=== PATIENT | male | born 1970 | race African-American/Black ===

== ENCOUNTER 2019-07-11 02:44 | Emergency (ER) | payer BC ==
[2019-07-11] MEDS ORDERED: NOREPINEPHRINE 4mg/D5W 250mL 4 MG/250 ML BAG IV ONE (03:06)
[2019-07-11] MEDS ORDERED: LORazepam 2 MG/ML VIAL ONE (03:17)
[2019-07-11] MEDS ORDERED: D5 0.9 NS 1,000 ML IV ONE (03:17)
[2019-07-11] MEDS ORDERED: SODIUM BICARB 50 MEQ/50ML VIAL ONE ×4 (03:21→10:00)
[2019-07-11] MEDS ORDERED: EPINEPHRINE/PF 1 MG/ML AMP ONE (03:23)
[2019-07-11] MEDS ORDERED: NA CHLORIDE 0.9% 0 ML ONE (03:23)
[2019-07-11 03:35] LABS: Absolute Lymphocytes (CBC) 2.6 K/uL (0.7-4.9); Basophils % 0.4 % (0-1.3); Hematocrit 48.9 % (39.6-49.0); Lymphocytes % 17.6 % (15.3-44.8); MPV 10.9 fL (7.6-11.3); RBC Red Blood Cell Count 4.69 M/uL (4.33-5.43)
--- NOTE | 2019-07-11 03:41 | ER ---
Nurse's Notes [facility] Name: Gael Castañeda Age: 49 yrs Sex: Male : 1970 Arrival Date: 07/11/2019 Time: 03:08 Bed 3 Private MD: Diagnosis: Respiratory arrest-sp cpr;Acidosis;Hypotension;Sepsis, unspecified organism;Bandemia Presentation: 07/11 02:38 Compressions began at 02:38. rv 03:28 Presenting complaint: states: HE WAS SEEN IN [place] LAST NIGHT FOR FLU AND WAS rv GIVEN [employer]. TODAY, I WAS ON THE COUCH AND I JUST HEARD A MOANING SOUND. I CAME IN THERE, I SAW HIM SNORING AND NOT RESPONDING. EYES ARE CLOSED. I TURNED HIM TO HIS SIDE AND A LOT OF PHLEGM CAME OUT. THEN THE AMBULANCE CAME. Transition of care: patient was not received from another setting of care. Onset of symptoms was July 11, 2019 at 02:30. Risk Assessment: Do you want to hurt yourself or someone else? Patient reports no desire to harm self or others. Care prior to arrival: Assisted ventilation. 03:28 Method Of Arrival: EMS: [facility] rv 03:28 Acuity: VERONICA 1 rv 05:08 Initial Sepsis Screen: Does the patient meet any 2 criteria? No. Patient's initial rv sepsis screen is negative. Does the patient have a suspected source of infection? No. Patient's initial sepsis screen is negative. Triage Assessment: 03:34 General: Appears distressed, Behavior is unresponsive. Pain: Unable to use pain scale. rv Patient is unresponsive. Neuro: Level of Consciousness is unresponsive. Cardiovascular: Rhythm is asystole. Respiratory: Airway is compromised. Historical: - Allergies: 05:09 No Known Allergies; rv - Home Meds: 05:09 None [Active]; rv - PMHx: 05:09 None; rv - PSHx: 05:09 Appendectomy; rv - Immunization history:: Adult Immunizations up to date. - Family history:: not pertinent. - Ebola Screening: : No symptoms or risks identified at this time. - Social history:: Smoking status: Patient denies any tobacco usage or history of. Screenin:08 Abuse screen: Denies threats or abuse. Denies injuries from another. Nutritional rv screening: No deficits noted. Tuberculosis screening: No symptoms or risk factors identified. Fall Risk None identified. Assessment: 02:38 Cardiac rhythm is asystole. rv 02:38 General: Appears distressed. Neuro: Level of Consciousness is unresponsive. rv Cardiovascular: Rhythm is PEA. Respiratory: Airway is compromised. 02:38 Reassessment: Reassessment: INITIATED CHEST COMPRESSIONS. EPINEPHRINE 1MG IV GIVEN rv EVERY 3-5 MINUTES ORDERED. PULSE CHECKING EVERY TWO MINUTES DURING CPR, DONE. 02:38 CPR assessment: unresponsive. rv 03:00 Reassessment: PULSE PALPATED. VITALS SIGNS CHECKED. ABLE TO REGAIN CARDIAC RHYTHM AT rv SINUS TACHYCARDIA AND BLOOD PRESSURE. INITIATED LEVOPHED DRIP AT THIS TIME. PATIENT WAS HOOKED TO VENTILATOR. 03:00 Reassessment: FAMILY IS UPDATED WITH DR NUNES AND MOISÉS POWERS. INTIATED TRANSFER. rv CALLED REPORT TO [facility] [place]. Reassessment: PATIENT IS HYPOTHERMIC. APPLIED BEAR HUGGER AND FLUID WARMER AT THIS TIME. Vital Signs: 02:38 BP 0 / ???; Pulse 0; rv 02:57 BP 53 / 22; Pulse 143; Resp 24 A; Pulse Ox 93% on ETT ambu; rv 03:30 BP 101 / 81; Pulse 89; Resp 14; Temp 94.6; Pulse Ox 96% on ETT vent; rv 03:30 Weight 90.72 kg; Height 5 ft. 11 in. (180.34 cm); rv 03:45 BP 104 / 94; Pulse 90; Resp 13; Pulse Ox 97% on 75% FiO2 ETT vent; rv 04:00 BP 125 / 104; Pulse 92; Resp 11; Pulse Ox 96% on ETT vent; rv 04:15 BP 131 / 115; Pulse 96; Resp 26; Pulse Ox 96% on 50% FiO2 ETT vent; rv 04:30 BP 110 / 86; Pulse 98; Resp 18; Pulse Ox 97% on 50% FiO2 ETT vent; rv 03:30 Body Mass Index 27.89 (90.72 kg, 180.34 cm) rv ED Course: 02:41 Assisted provider with intubation using 7.5 mm ETT via oral route. ET tube secured at rv 24cm at the teeth. Set up intubation tray. Intubated by Jaiden Nunes MD Placement verified by CXR, CO2 detector w/ + color change, Patient tolerated well. 02:45 Inserted saline lock: 22 gauge in right forearm, using aseptic technique. rv 02:45 Assisted provider with central line placement. Set up central line tray. Triple lumen rv line placed in right femoral. Line placed by Jaiden Nunes MD Dressed with Tegaderm, Blood was collected. Patient tolerated well. 03:00 Patient has correct armband on for positive identification. Placed in gown. rv 03:08 Patient arrived in ED. darinel 03:08 Jaiden Nunes MD is Attending Physician. darinel 03:20 Hensley cath inserted, using sterile technique, 16 Fr., by nv, balloon inflated, to rv gravity drainage, NGT: inserted 16 Fr. via left nare. verified placement of air over stomach, verified return of gastric contents, Placement verified by X-ray, to intermittent suction. Returned gastric contents. Patient tolerated well. 03:27 Gato Kan, GIO is Primary Nurse. rv 03:30 Triage completed. rv 03:35 Radiology exam delayed due to Patient is not stable at this time. Charge nurse will kw1 notify CT when patient is able to travel to CT Dept. for exam. 03:35 Arm band placed on Patient placed in the treatment room, on a stretcher, on oxygen, on rv personnel monitor, on pulse oximetry, Patient notified of wait time. 03:45 XRAY Chest (1 view) In Process Unspecified. EDMS 04:10 Notified ED physician of a critical lab result(s). Lactate of 18.4, Creatinine of 5.30, bb ALT 482, AST 475, Troponin 0.95. Dr Nunes notified. 04:47 Notified ED physician of a critical lab result(s). Bands of 15% Dr Nunes notified. bb 05:12 Patient transferred, IV remains in place. rv 07:01 Primary Nurse role handed off by Gato Kan, RN rv 07:01 Gato Kan, RN is Primary Nurse. rv Administered Medications: 02:45 Drug: NS 0.9% (30 ml/kg) 30 ml/kg Route: IV; Rate: bolus; Site: right forearm; rv 04:52 Follow up: IV Status: Completed infusion rv 04:52 Follow up: IV Intake: 2750ml rv 02:45 Drug: EPINEPHrine 0.1mg/mL 1:10,000 1 mg Route: IVP; Site: right forearm; rv 04:55 Follow up: Response: No adverse reaction rv 02:48 Drug: Sodium Bicarbonate 1 amp Route: IVP; Site: right forearm; rv 04:56 Follow up: Response: No adverse reaction rv 02:50 Drug: EPINEPHrine 0.1mg/mL 1:10,000 1 mg Route: IVP; Site: right forearm; rv 04:55 Follow up: Response: No adverse reaction rv 02:55 Drug: EPINEPHrine 0.1mg/mL 1:10,000 1 mg Route: IVP; Site: right forearm; rv 04:55 Follow up: Response: No adverse reaction rv 02:56 Drug: Sodium Bicarbonate 1 amp Route: IVP; Site: right forearm; rv 04:56 Follow up: Response: No adverse reaction rv 02:58 Drug: EPINEPHrine 0.1mg/mL 1:10,000 1 mg {Note: CENTRAL LINE, RIGHT FEMORAL.} Route: rv IVP; Site: Other; 04:56 Follow up: Response: No adverse reaction rv 03:05 Drug: Levophed (4 mg/250 mL D5W 4 mcg/min Route: IV; Rate: calculated rate; Site: right rv femoral; 04:53 Follow up: IV Status: Infusion continued upon transfer rv 03:12 Drug: Sodium Bicarbonate 1 amp Route: IVP; Site: right femoral; rv 04:56 Follow up: Response: No adverse reaction rv 03:13 Drug: Sodium Bicarbonate 1 amp Route: IVP; Site: right femoral; rv 04:56 Follow up: Response: No adverse reaction rv 03:15 Drug: Ativan 2 mg Route: IVP; Site: right femoral; rv 04:56 Follow up: Response: No adverse reaction rv 03:25 Drug: Epinephrine Drip - (EPINEPHrine (PF) 4 mg, Sodium Chloride 0.9% 250 ml) {Note: jb4 Administered Via central line.} Route: IV; Rate: per protocol; Site: right femoral; 04:54 Follow up: IV Status: Infusion continued upon transfer rv 03:30 Drug: D5W 1000 ml, Sodium Bicarbonate 150 mEq Route: IV; Rate: 150 ml/hr; Site: right jb4 femoral; 04:54 Follow up: IV Status: Infusion continued upon transfer rv 03:58 Drug: Sodium Bicarbonate 1 amp Route: IVP; Site: right femoral; jb4 04:57 Follow up: Response: No adverse reaction rv 03:58 Drug: Sodium Bicarbonate 1 amp Route: IVP; Site: right femoral; jb4 04:57 Follow up: Response: No adverse reaction rv 04:01 Drug: Solu-CORTEF 100 mg Route: IVP; Site: right forearm; rv 04:54 Follow up: Response: No adverse reaction rv 04:01 Drug: Pepcid 20 mg Route: IVP; Site: right forearm; rv 04:54 Follow up: Response: No adverse reaction rv 04:01 Not Given (Duplicate Order): Ativan 2 mg IVP once rv 04:45 Drug: Cefepime 2 grams {Note: adminstered via central line.} Route: IVPB; Rate: 200 jb4 ml/hr; Infused Over: 30 mins; Site: right femoral; 04:53 Follow up: IV Status: Infusion continued upon transfer rv 04:45 Not Given (Other Intervention Used): vancoMYCIN 2 grams IVPB at calculated rate once jb4 04:46 Drug: vancoMYCIN 1 grams {Note: administered via Central Line.} Route: IVPB; Infused jb4 Over: 1.5 hrs; Site: right femoral; 04:57 Follow up: IV Status: Infusion continued upon transfer rv 05:10 Drug: Sodium Bicarbonate 50 mEq Route: IVP; Site: right forearm; rv 05:10 Follow up: Response: Medication administered at discharge. rv 05:10 Drug: Sodium Bicarbonate 50 mEq Route: IVP; Site: right femoral; rv 05:10 Follow up: Response: No adverse reaction rv Intake: 04:52 IV: 2750ml; Total: 2750ml. rv Outcome: 03:00 Outcome Resuscitation successful rv 03:00 Transferred by helicopter to [facility], Transfer form completed. rv X-rays sent w/ patient. 03:00 Condition: stable 03:41 ER care complete, transfer ordered by . darinel 05:24 Patient left the ED. rv 07:06 Patient left the ED. rv Signatures: Dispatcher [employer] Jaiden Cortes MD MD cha Ballard, Brenda RN RN aPras Noyola RN RN jb4 Yolette Ellis 1 Gato Kan RN RN rv Corrections: (The following items were deleted from the chart) 05:08 05:07 Compressions began at 02:38. rv rv 07:00 02:38 CPR assessment: unresponsive, rv rv 07:04 02:38 CPR assessment: unresponsive, rv rv
--- NOTE | 2019-07-11 03:41 | EDPHYS ---
Physician Documentation [facility] Name: Gael Castañeda Age: 49 yrs Sex: Male : 1970 Arrival Date: 07/11/2019 Time: 03:08 Bed 3 Private MD: ED Physician Jaiden Sibley HPI: 07/11 03:18 This 49 yrs old Black Male presents to ER via Unassigned with complaints of cpr. darinel 03:18 Preceding the arrest, the patient collapsed, was dyspneic. The arrest occurred at home. darinel Pre-hospital course: Bystanders at the scene did not perform CPR. EMS care prior to arrival: initiation of ACLS, oxygen. The patient has not experienced similar symptoms in the past. Historical: - Allergies: 05:09 No Known Allergies; rv - Home Meds: 05:09 None [Active]; rv - PMHx: 05:09 None; rv - PSHx: 05:09 Appendectomy; rv - Immunization history:: Adult Immunizations up to date. - Family history:: not pertinent. - Ebola Screening: : No symptoms or risks identified at this time. - Social history:: Smoking status: Patient denies any tobacco usage or history of. ROS: 03:18 Unable to obtain ROS due to obtunded state, cpr. darinel Exam: 03:18 Eyes: Periorbital structures: appear normal, Pupils: are fixed and dilated. darinel 03:18 Cardiovascular: Rate: actual rate is 0 bpm, Rhythm: asystole, Pulses: not palpable, Heart sounds: none, Edema: is not appreciated, JVD: is not appreciated. 03:18 Respiratory: Respiratory rate: zero Vital Signs: 02:38 BP 0 / ???; Pulse 0; rv 02:57 BP 53 / 22; Pulse 143; Resp 24 A; Pulse Ox 93% on ETT ambu; rv 03:30 BP 101 / 81; Pulse 89; Resp 14; Temp 94.6; Pulse Ox 96% on ETT vent; rv 03:30 Weight 90.72 kg; Height 5 ft. 11 in. (180.34 cm); rv 03:45 BP 104 / 94; Pulse 90; Resp 13; Pulse Ox 97% on 75% FiO2 ETT vent; rv 04:00 BP 125 / 104; Pulse 92; Resp 11; Pulse Ox 96% on ETT vent; rv 04:15 BP 131 / 115; Pulse 96; Resp 26; Pulse Ox 96% on 50% FiO2 ETT vent; rv 04:30 BP 110 / 86; Pulse 98; Resp 18; Pulse Ox 97% on 50% FiO2 ETT vent; rv 03:30 Body Mass Index 27.89 (90.72 kg, 180.34 cm) rv Procedures: 03:21 Intubation: Intubated orally using # 4 Zoie blade with 7.5 mm ETT. was successful [facility] on first attempt. Ventilated with Ambu bag. Cricoid pressure applied during procedure. Placement verified by CXR, CO2 detector with (+) color change, auscultating bilateral breath sounds, Patient tolerated well. Central Line: the site was prepped with Betadine, in sterile fashion, a triple lumen catheter was inserted, in the right femoral vein, in 2 attempts. placement was verified, by blood return, the site was dressed with using sterile technique, the patient tolerated the procedure, well. MDM: 03:08 Patient medically screened. [facility] 03:21 Data reviewed: vital signs, nurses notes, lab test result(s), EKG, radiologic studies, [facility] CT scan, plain films. 07/11 03:11 Order name: Basic Metabolic Panel; Complete Time: 04:07 [facility] 07/11 03:11 Order name: CBC with Diff; Complete Time: 05:04 [facility] 07/11 03:11 Order name: LFT's; Complete Time: 04:07 [facility] 07/11 03:11 Order name: Magnesium; Complete Time: 04:07 [facility] 07/11 03:11 Order name: NT PRO-BNP; Complete Time: 04:07 [facility] 07/11 03:11 Order name: PT-INR; Complete Time: 04:07 [facility] 07/11 03:11 Order name: Troponin (emerg Dept Use Only); Complete Time: 04:07 [facility] 07/11 03:11 Order name: Blood Culture Adult (2) [facility] 07/11 03:11 Order name: Ckmb; Complete Time: 04:07 [facility] 07/11 03:11 Order name: CPK; Complete Time: 04:07 [facility] 07/11 03:11 Order name: Lactate; Complete Time: 04:07 [facility] 07/11 03:11 Order name: Lipase; Complete Time: 04:07 [facility] 07/11 03:11 Order name: Procalcitonin; Complete Time: 05:04 [facility] 07/11 03:11 Order name: XRAY Chest (1 view) darinel 07/11 03:11 Order name: Ptt, Activated; Complete Time: 04:07 [facility] 07/11 03:11 Order name: ABG; Complete Time: 04:07 [facility] 07/11 03:23 Order name: Glucose, Ancillary Testing; Complete Time: 03:38 EDMS 07/11 03:36 Order name: Manual Differential; Complete Time: 05:04 EDMS 07/11 04:02 Order name: ABG; Complete Time: 04:12 07/11 04:03 Order name: ABG 07/11 04:09 Order name: Tylenol Level; Complete Time: 05:04 [facility] 07/11 04:09 Order name: AMMONIA [facility] 07/11 04:10 Order name: Asprin; Complete Time: 05:04 [facility] 07/11 04:57 Order name: ABG 07/11 03:11 Order name: EKG; Complete Time: 03:13 [facility] 07/11 03:11 Order name: Cardiac monitoring; Complete Time: 03:35 [facility] 07/11 03:11 Order name: EKG - Nurse/Tech; Complete Time: 03:35 [facility] 07/11 03:11 Order name: IV Saline Lock; Complete Time: 03:35 [facility] 07/11 03:11 Order name: Labs collected and sent; Complete Time: 03:35 [facility] 07/11 03:11 Order name: O2 Per Protocol; Complete Time: 03:35 [facility] 07/11 03:11 Order name: O2 Sat Monitoring; Complete Time: 03:35 [facility] 07/11 03:11 Order name: Accucheck; Complete Time: 03:35 [facility] 07/11 03:11 Order name: IV Saline Lock - Large Bore; Complete Time: 03:35 [facility] 07/11 03:11 Order name: Urine Dipstick-Ancillary (obtain specimen) [facility] 07/11 03:41 Order name: Ayden tena Administered Medications: 02:45 Drug: NS 0.9% (30 ml/kg) 30 ml/kg Route: IV; Rate: bolus; Site: right forearm; rv 04:52 Follow up: IV Status: Completed infusion rv 04:52 Follow up: IV Intake: 2750ml rv 02:45 Drug: EPINEPHrine 0.1mg/mL 1:10,000 1 mg Route: IVP; Site: right forearm; rv 04:55 Follow up: Response: No adverse reaction rv 02:48 Drug: Sodium Bicarbonate 1 amp Route: IVP; Site: right forearm; rv 04:56 Follow up: Response: No adverse reaction rv 02:50 Drug: EPINEPHrine 0.1mg/mL 1:10,000 1 mg Route: IVP; Site: right forearm; rv 04:55 Follow up: Response: No adverse reaction rv 02:55 Drug: EPINEPHrine 0.1mg/mL 1:10,000 1 mg Route: IVP; Site: right forearm; rv 04:55 Follow up: Response: No adverse reaction rv 02:56 Drug: Sodium Bicarbonate 1 amp Route: IVP; Site: right forearm; rv 04:56 Follow up: Response: No adverse reaction rv 02:58 Drug: EPINEPHrine 0.1mg/mL 1:10,000 1 mg {Note: CENTRAL LINE, RIGHT FEMORAL.} Route: rv IVP; Site: Other; 04:56 Follow up: Response: No adverse reaction rv 03:05 Drug: Levophed (4 mg/250 mL D5W 4 mcg/min Route: IV; Rate: calculated rate; Site: right rv femoral; 04:53 Follow up: IV Status: Infusion continued upon transfer rv 03:12 Drug: Sodium Bicarbonate 1 amp Route: IVP; Site: right femoral; rv 04:56 Follow up: Response: No adverse reaction rv 03:13 Drug: Sodium Bicarbonate 1 amp Route: IVP; Site: right femoral; rv 04:56 Follow up: Response: No adverse reaction rv 03:15 Drug: Ativan 2 mg Route: IVP; Site: right femoral; rv 04:56 Follow up: Response: No adverse reaction rv 03:25 Drug: Epinephrine Drip - (EPINEPHrine (PF) 4 mg, Sodium Chloride 0.9% 250 ml) {Note: jb4 Administered Via central line.} Route: IV; Rate: per protocol; Site: right femoral; 04:54 Follow up: IV Status: Infusion continued upon transfer rv 03:30 Drug: D5W 1000 ml, Sodium Bicarbonate 150 mEq Route: IV; Rate: 150 ml/hr; Site: right jb4 femoral; 04:54 Follow up: IV Status: Infusion continued upon transfer rv 03:58 Drug: Sodium Bicarbonate 1 amp Route: IVP; Site: right femoral; jb4 04:57 Follow up: Response: No adverse reaction rv 03:58 Drug: Sodium Bicarbonate 1 amp Route: IVP; Site: right femoral; jb4 04:57 Follow up: Response: No adverse reaction rv 04:01 Drug: Solu-CORTEF 100 mg Route: IVP; Site: right forearm; rv 04:54 Follow up: Response: No adverse reaction rv 04:01 Drug: Pepcid 20 mg Route: IVP; Site: right forearm; rv 04:54 Follow up: Response: No adverse reaction rv 04:01 Not Given (Duplicate Order): Ativan 2 mg IVP once rv 04:45 Drug: Cefepime 2 grams {Note: adminstered via central line.} Route: IVPB; Rate: 200 jb4 ml/hr; Infused Over: 30 mins; Site: right femoral; 04:53 Follow up: IV Status: Infusion continued upon transfer rv 04:45 Not Given (Other Intervention Used): vancoMYCIN 2 grams IVPB at calculated rate once jb4 04:46 Drug: vancoMYCIN 1 grams {Note: administered via Central Line.} Route: IVPB; Infused jb4 Over: 1.5 hrs; Site: right femoral; 04:57 Follow up: IV Status: Infusion continued upon transfer rv 05:10 Drug: Sodium Bicarbonate 50 mEq Route: IVP; Site: right forearm; rv 05:10 Follow up: Response: Medication administered at discharge. rv 05:10 Drug: Sodium Bicarbonate 50 mEq Route: IVP; Site: right femoral; rv 05:10 Follow up: Response: No adverse reaction rv Disposition: 07/11/19 03:[address] [facility]. Diagnosis are Respiratory arrest - sp cpr, Acidosis, Hypotension, Sepsis, unspecified organism, Bandemia. - Reason for transfer: Higher level of care. - Accepting physician is to [facility]. - Condition is Critical. - Problem is new. - Symptoms have improved. Signatures: Dispatcher [employer] EDJaiden Johnson MD MD cha Bryson, James, RN RN jb4 Gato Kan RN RN rv Corrections: (The following items were deleted from the chart) 05:05 03:41 07/11/2019 03:[address] [facility]. Diagnosis is darinel Respiratory arrest - sp cpr; Acidosis; Hypotension; Sepsis, unspecified organism. Reason for transfer: Higher level of care. Accepting physician is to [facility]. Condition is Critical. Problem is new. Symptoms have improved. darinel 05:15 03:13 Head Brain Wo Cont+CT.RAD.BRZ ordered. EDMS EDMS 05:24 05:05 07/11/2019 03:[address] [facility]. Diagnosis is rv Respiratory arrest - sp cpr; Acidosis; Hypotension; Sepsis, unspecified organism; Bandemia. Reason for transfer: Higher level of care. Accepting physician is to [facility]. Condition is Critical. Problem is new. Symptoms have improved. [facility] 07:06 05:24 07/11/2019 03:[address] [facility]. Diagnosis is rv Respiratory arrest - sp cpr; Acidosis; Hypotension; Sepsis, unspecified organism; Bandemia. Reason for transfer: Higher level of care. Accepting physician is to [facility]. Condition is Critical. Problem is new. Symptoms have improved. rv
[2019-07-11 03:49] LABS: Protime INR 2.1
[2019-07-11 04:00] LABS: Blood Gas Oxyhemoglobin 98.6 % (94-97); Blood O2 Saturation 98.4 % (92-98.5)
[2019-07-11] MEDS ORDERED: FAMOTIDINE 20 MG/2 ML VIAL IV ONE (04:02)
[2019-07-11] MEDS ORDERED: HYDROCORTISONE SUC 100 MG INJ ONE (04:02)
[2019-07-11 04:03] LABS: Albumin 1.3 g/dL (3.4-5.0); Bilirubin Direct 0.1 mg/dL (0-0.2); Bilirubin Total 0.3 mg/dL (0.2-1.0); CKMB Creatine Kinase MB 7.5 ng/mL (0.3-3.6); Magnesium 3.4 mg/dL (1.8-2.4); Potassium 4.4 mmol/L (3.5-5.1); Protein, Total 3.6 g/dL (6.4-8.2)
[2019-07-11 04:05] LABS: Troponin (Emerg Dept Use Only) 0.95 ng/mL (0.0-0.045)
[2019-07-11 04:08] LABS: Blood Gas Oxyhemoglobin 98.5 % (94-97); Blood O2 Saturation 98.4 % (92-98.5)
[2019-07-11] MEDS ORDERED: CEFEPIME 2 GM VIAL ONE (04:25)
[2019-07-11] MEDS ORDERED: NA CHLORIDE 0.9% 100 ML IV ONE (04:26)
[2019-07-11] MEDS ORDERED: NA CHLORIDE 0.9% 500 ML ONE (04:26)
[2019-07-11] MEDS ORDERED: VANCOMYCIN 1 GM/VIAL ONE (04:26)
[2019-07-11 04:40] LABS: Blood Morphology Comment NOTED (NOT SEEN); Burr Cells 3+; Platelet Estimate ADEQ
[2019-07-11] MEDS ORDERED: NA CHLORIDE 0.9% 250 ML ONE (04:41)
[2019-07-11] MEDS ORDERED: NA CHLORIDE 0.9% 1,000 ML ONE ×2 (04:43→05:05)
[2019-07-11 05:05] LABS: Blood Gas Oxyhemoglobin 98.2 % (94-97); Blood O2 Saturation 98.7 % (92-98.5)
[2019-07-11 05:08] LABS: Blood Gas Oxyhemoglobin 96.8 % (94-97); Blood O2 Saturation 97.2 % (92-98.5)
[2019-07-11 05:42] VITALS: TEMP 94.6
[2019-07-11 07:26] VITALS: BP 110/86; O2SAT 97
--- NOTE | 2019-07-11 08:19 | RAD REPORT ---
EXAM DESCRIPTION: RAD - Chest Single View - 07/11/2019 3:45 am CLINICAL HISTORY: COUGH Chest pain. COMPARISON: No comparisons FINDINGS: Portable technique limits examination quality. The lungs are grossly clear. The heart is normal in size. Tip of the ET tube is above the mary ann. Ent ra tube descends in the stomach.
[2019-07-11] MEDS ORDERED: SODIUM CHL 0.9% 250 ML BAG ONE (10:00)
[2019-07-11] MEDS ORDERED: D50W 25 GM/50 ML SYRINGE/VIAL IV ONE (10:00)
[2019-07-11] MEDS ORDERED: SODIUM CHL 0.9% 1000 ML BAG ONE (10:00)
[2019-07-11] MEDS ORDERED: EPINEPHrine 1 MG/10 ML SYR ONE (10:00)
--- NOTE | 2019-07-11 10:29 | EKG ---
Test Date: 2019-07-11 Test Time: 04:17:39 Gas Check Pad Maker: DARLYN MEASUREMENT RESULTS: Intervals: Rate: 103 TN: QRSD: 86 QT: 306 QTc: 400 [place]: P: TN: QRS: 95 T: -30 INTERPRETIVE STATEMENTS: Atrial fibrillation with rapid ventricular response Rightward axis Low voltage QRS Nonspecific T wave abnormality, probably digitalis effect Abnormal ECG No previous ECG available for comparison Electronically Signed On 07-11-19 10:28:55 COMMERCIAL DECORATOR by Shashi Bobo
== END 2019-07-11 07:06 | disposition short-term general hospital (02) ==
LOC: ER 02:44
DX: E87.2 Acidosis (principal); A41.9 Sepsis, unspecified organism; D72.825 Bandemia; I95.9 Hypotension, unspecified
CPT/HCPCS: 93005; 87040 ×2; 85025; 80048; 36415; 82140; 83735; 82550; 80329 ×2; 85610; 82947 ×2; 80076; 83605; 85730; 84484; 82553; 83690; 84145; 83880; 71045; 94002; 82805 ×4; 31500; 92950; 99291; J0171 ×2; J0692; J7042; J7030 ×5; J7040; J1720